=== PATIENT | female | born 1980 | race Caucasian/White ===

== ENCOUNTER 2023-09-19 08:24 | Outpatient (CLI) | payer MEDICAID | END 2023-09-19 23:59 | disposition home or self-care (01) | LOC: RAD 08:24 | PROVIDERS: ATTEND Student in an Organized Health Care Education/Training Program | DX: K80.20 Calculus of gallbladder without cholecystitis without obstruction (principal); K44.9 Diaphragmatic hernia without obstruction or gangrene; K21.00 Gastro-esophageal reflux disease with esophagitis, without bleeding; E11.9 Type 2 diabetes mellitus without complications; M54.50 Low back pain, unspecified; G89.29 Other chronic pain | CPT/HCPCS: 76700 ==

== ENCOUNTER 2023-10-06 05:38 | Day surgery (SDC) | payer MEDICAID, MEDICARE ==
[2023-10-02 16:13] LABS: BASOPHILS % (AUTO) 0.5 % (0-1); EOSINOPHILS # (AUTO) 0.2 X10'3 (0-0.9); EOSINOPHILS % (AUTO) 3.7 % (0-6); LYMPHOCYTES # (AUTO) 2.1 X10'3 (1.1-4.8); LYMPHOCYTES % (AUTO) 34.7 % (21-51); MEAN CORPUSCULAR HEMOGLOBIN 27.6 PG (27.0-31.0); MEAN CORPUSCULAR HGB CONC 32.4 g/dL (33.0-36.5); MEAN PLATELET VOLUME 8.5 FL (7.4-10.4); MONOCYTES # (AUTO) 0.5 X10'3 (0-0.9); MONOCYTES % (AUTO) 8.8 % (2-12); NEUTROPHILS # (AUTO) 3.2 X10'3 (1.8-7.7); NEUTROPHILS % (AUTO) 52.3 % (42-75); PRE OP HEMATOCRIT 39.3 % (35.0-45.0); PRE OP HEMOGLOBIN 12.7 g/dL (12.0-16.0); PRE OP PLATELET COUNT 200 X10'3 (140-440); PRE OP WHITE BLOOD COUNT 6.2 10'3 (4.8-10.8); RED BLOOD COUNT 4.62 X10'6 (4.20-5.60); RED CELL DISTRIBUTION WIDTH 14.8 % (11.5-14.5)
[2023-10-02 16:32] LABS: ALBUMIN 3.7 G/DL (3.4-5.0); ALKALINE PHOSPHATASE 55 IU/L (46-116); BLOOD UREA NITROGEN 13 MG/DL (7-18); BUN/CREATININE RATIO 14.4 (10.0-20.0); CALCIUM 8.6 MG/DL (8.5-10.1); CHLORIDE 103 MMOL/L (99-107); PRE OP ALT 34 U/L (30-65); PRE OP ANION GAP 5 (8-16); PRE OP AST 23 U/L (10-37); PRE OP BILIRUB, TOTAL 1.1 MG/DL (0.0-1.0); PRE OP GLUCOSE 106 MG/DL (70-104); PRE OP POTASSIUM 3.7 MMOL/L (3.4-5.1); PRE OP SODIUM 137 MMOL/L (135-145); TOTAL CARBON DIOXIDE 28.9 MMOL/L (24-32); TOTAL PROTEIN 7.4 G/DL (6.4-8.2); eGFR 68 ML/MIN
[2023-10-02 17:00] LABS: HCG SERUM QL NEGATIVE
[~2023-10-06] VITALS: Ht 167.6 cm; Wt 71.6 kg
[2023-10-06] VITALS (8 sets, daily range): BP systolic 86–117; BP diastolic 46–75; PULSE 46–57; RESP 13–17; TEMP 97.4; O2SAT 0–100
[~2023-10-06 05:38] MED LIST: ATOR10TA PO; BUPR-564 PO; LEVO100T9 PO; OMEP40CA21 PO; SEMA1PEN3; SERT-153 PO
[2023-10-06] MEDS: cefazolin 2gm/D5W 100mL 100 ML IV ONE (05:51)
[2023-10-06] MEDS: ringers solution, lacted 1,000 ML IV SCH (06:22)
[2023-10-06] MEDS: famotidine 20mg tablet PO ONE (06:23)
[2023-10-06] MEDS ORDERED: BUPIVAcaine/PF 2.5mg/ml (0.25%) 10ml vial ONE (06:51)
[2023-10-06] MEDS ORDERED: LIDOcaine 1% 30ml preserv. free vial ONE (06:51)
[2023-10-06] MEDS: BUPIVAcaine/PF 2.5mg/ml (0.25%) 10ml vial ONE (07:38)
[2023-10-06] MEDS ORDERED: fentaNYL/PF 50MCG/1 ML 2ML syringe ONE (07:56)
[2023-10-06] MEDS ORDERED: midazolam 1 mg/ML 2ml injection ONE (07:56)
[2023-10-06] MEDS ORDERED: propofol inj 20 ML IV ONE (08:05)
[2023-10-06] MEDS ORDERED: fentaNYL/PF 50MCG/1 ML 2ML syringe IV PRN ×2 (08:10)
[2023-10-06] MEDS ORDERED: ringers solution, lacted 1,000 ML IV SCH (08:10)
[2023-10-06] MEDS ORDERED: morphine 4 MG/ML inj SYRINge IV PRN (08:10)
[2023-10-06] MEDS ORDERED: ondansetron/PF 4mg/2ml inj IV PRN (08:10)
[2023-10-06] MEDS: acetaminophen 1,000mg/100ml IV 100 ML IV ONE (08:34)
[2023-10-06] MEDS: morphine 2 MG/ML inj. syringe IV PRN (08:51)
== END 2023-10-06 09:14 | disposition home or self-care (01) ==
LOC: PAS 05:38
PROVIDERS: ATTEND Orthopaedic Surgery Hand Surgery
DX: G56.01 Carpal tunnel syndrome, right upper limb (principal); E11.9 Type 2 diabetes mellitus without complications; E03.9 Hypothyroidism, unspecified; F41.9 Anxiety disorder, unspecified; J44.9 Chronic obstructive pulmonary disease, unspecified; Z79.890 Hormone replacement therapy; Z79.899 Other long term (current) drug therapy; Z98.84 Bariatric surgery status; Z98.891 History of uterine scar from previous surgery; Z98.890 Other specified postprocedural states; Z88.1 Allergy status to other antibiotic agents; Z88.6 Allergy status to analgesic agent; Z88.8 Allergy status to other drugs, medicaments and biological substances
CPT/HCPCS: 36415; 64721; 71046; 80053; 82948; 84703; 85025; 93005; J0131; J0690; J2250; J2270; J2704; J3010; J3490; J7030; J7120; Z7506; Z7512; A4215; A6449